=== PATIENT | female | born 1985 | race African-American/Black ===

== ENCOUNTER 2016-11-21 04:59 | Observation (INO) | payer OTHER ==
--- NOTE | 2016-11-21 05:47 | ER Document Report ---
ED GI/ - General Mode of Arrival: Ambulatory Information source: Patient TRAVEL OUTSIDE OF THE [place] IN LAST 30 DAYS: No - HPI Patient complains to provider of: Abdominal pain, , Vaginal discharge Onset: Other - 2 days Timing/Duration: Intermittent, Worse Quality of pain: Cramping Severity at maximum: Moderate Severity in ED: Moderate Pain Level: 4 Location: LLQ, RLQ, Pelvis Menstrual period history: LMP: 07/15/16 : 1 Para: 0 Abortions: 0 OB ultrasound done: Yes Associated symptoms: Vaginal discharge Exacerbated by: Movement Relieved by: Denies Similar symptoms previously: Yes Recently seen / treated by doctor: Yes <ORACIO KOHLER - Last Filed: 11/21/16 07:23> <LORRAINE VÁSQUEZ - Last Filed: 11/21/16 07:41> - General Chief Complaint: Pelvic Pain Stated Complaint: SEVERE CRAMPING Time Seen by Provider: 11/21/16 05:21 Notes: -year-old female presents to ED for abdominal cramping 2 days. She is 19 weeks tomorrow. , States she has had some vaginal discharge off and on for couple weeks. (ORACIO KOHLER) Past Medical History - General Information source: Patient - Social History Smoking Status: Never Smoker Cigarette use (# per day): No Chew tobacco use (# tins/day): No Smoking Education Provided: No Frequency of alcohol use: None Drug Abuse: None Occupation: [employer] Lives with: Friend Family History: Reviewed & Not Pertinent Patient has suicidal ideation: No Patient has homicidal ideation: No - Past Medical History Cardiac Medical History: Reports: None Pulmonary Medical History: Reports: Hx Asthma EENT Medical History: Reports: None Neurological Medical History: Reports: None Endocrine Medical History: Reports: None Renal/ Medical History: Reports: Other - uterine fibroids Malignancy Medical History: Reports: None GI Medical History: Reports: None Musculoskeltal Medical History: Reports None Skin Medical History: Reports None Psychiatric Medical History: Reports: None Traumatic Medical History: Reports: None Infectious Medical History: Reports: None Surgical Hx: Negative Past Surgical History: Reports: None <ORACIO KOHLER - Last Filed: 11/21/16 07:23> Review of Systems - Review of Systems Constitutional: No symptoms reported EENT: No symptoms reported Cardiovascular: No symptoms reported Respiratory: No symptoms reported Gastrointestinal: Abdominal pain - cramping Genitourinary: No symptoms reported Female Genitourinary: , Vaginal discharge Musculoskeletal: No symptoms reported Skin: No symptoms reported Hematologic/Lymphatic: No symptoms reported Neurological/Psychological: No symptoms reported -: Yes All other systems reviewed and negative <ORACIO KOHLER - Last Filed: 11/21/16 07:23> Physical Exam - Vital signs Interpretation: Normal - General General appearance: Appears well, Alert - HEENT Head: Normocephalic, Atraumatic Eyes: Normal Pupils: PERRL - Respiratory Respiratory status: No respiratory distress Chest status: Nontender Breath sounds: Normal Chest palpation: Normal - Cardiovascular Rhythm: Regular Heart sounds: Normal auscultation Murmur: No - Abdominal Inspection: Gravid female Distension: No distension Bowel sounds: Normal Tenderness: Tender - Bilateral lower abdominal pain worse on the right, McBurney 's point, Guarding. No: Rebound Organomegaly: No organomegaly - Back Back: Normal, Nontender - Extremities General upper extremity: Normal inspection, Nontender, Normal color, Normal ROM , Normal temperature General lower extremity: Normal inspection, Nontender, Normal color, Normal ROM , Normal temperature, Normal weight bearing. No: Angela's sign - Neurological Neuro grossly intact: Yes Cognition: Normal Orientation: AAOx4 [place] Coma Scale Eye Opening: Spontaneous [place] Coma Scale Verbal: Oriented [place] Coma Scale Motor: Obeys Commands Radha Coma Scale Total: 15 Speech: Normal Motor strength normal: LUE, RUE, LLE, RLE Sensory: Normal - Psychological Associated symptoms: Normal affect, Normal mood - Skin Skin Temperature: Warm Skin Moisture: Dry Skin Color: Normal <ORACIO KOHLER - Last Filed: 11/21/16 07:23> Course - Laboratory Result Diagrams: 11/21/16 06:30 11/21/16 06:30 - Consults Devan Time consulted: 07:10 <ORACIO KOHLER - Last Filed: 11/21/16 07:23> - Laboratory Result Diagrams: 11/21/16 06:30 11/21/16 06:30 <LORRAINE VÁSQUEZ - Last Filed: 11/21/16 07:41> - Re-evaluation Re-evalutation: 11/21/16 07:23 Next labs and ultrasound with Dr. Vásquez, examined the patient and stated that patient probably needs to be admitted for serial abdominal exams. Consulted Dr. Hartman who is on-call for [employer] she stated that Dr. Palacios is here and that he will come down and see the patient. (ORACIO KOHLER) 11/21/16 07:40 Patient with intermittent crampy right lower quadrant pain, now more persistent. Patient is . On exam there is some pain to the right lower quadrant over McBurney's point. No evidence for inguinal hernia. No gross mass noted. No femoral hernia. Patient has had recent STD testing. Question round ligament pain versus appendicitis. White blood cell count 12.3. OB is consulted for observation. (LORRAINE VÁSQUEZ) - Vital Signs Vital signs: Temp Pulse Resp BP Pulse Ox 98.6 F 102 H 20 147/86 H 100 11/21/16 05:01 11/21/16 05:01 11/21/16 05:01 11/21/16 05:01 11/21/16 05:01 - Laboratory Laboratory results interpreted by me: 11/21/16 11/21/16 11/21/16 06:30 06:30 07:05 WBC 12.3 H Hgb 11.2 L Hct 34.3 L MCV 74 L MCH 23.9 L RDW 16.0 H Absolute Neutrophils 8.9 H Sodium 134.7 L BUN 6 L Urine Ketones 20 H Ur Leukocyte Esterase TRACE H - Consults *Madhu Hartman Reason for consultation: 11/21/16 07:25 19 week female with her first who has lower abdominal pain is worse on the right. She states she also has pelvic cramping. Found shows 19 week 2 day gestation, breech with a heart tone of 149 bpm cervical length 2.[address] Hartman stated that Dr. Palacios was there at that time and that they will be down to see the patient in the emergency room. ( ORACIO KOHLER)
[2016-11-21 06:41] LABS: ABSOLUTE EOSINOPHILS # (AUTO) 0.1 10^3/uL (0.0-0.6); ABSOLUTE LYMPHOCYTES (AUTO) 2.3 10^3/uL (0.5-4.7); ABSOLUTE NEUT (AUTO) 8.9 10^3/uL (1.7-8.2); BASOPHILS % (AUTO) 0.3 % (0-2); EOSINOPHILS % (AUTO) 0.7 % (0-6); HEMATOCRIT 34.3 % (36.0-47.0); HEMOGLOBIN 11.2 g/dL (12.0-15.5); HGB HCT DIFFERENCE -0.7; LYMPHOCYTES % (AUTO) 18.6 % (13-45); MEAN CORPUSCULAR HEMOGLOBIN 23.9 pg (27.0-33.4); MEAN CORPUSCULAR HGB CONC 32.6 g/dL (32.0-36.0); MEAN CORPUSCULAR VOLUME 74 fl (80-97); MONOCYTES % (AUTO) 7.9 % (3-13); RED BLOOD COUNT 4.66 10^6/uL (3.72-5.28); SEGMENTED NEUTROPHILS % (AUTO) 72.5 % (42-78); WHITE BLOOD COUNT 12.3 10^3/uL (4.0-10.5)
--- NOTE | 2016-11-21 06:42 | RADIOLOGY REPORT (SQ) ---
EXAM DESCRIPTION: U/S OB 14+ TA/1 GEST W/DOPPLER COMPLETED DATE/TIME: 11/21/2016 6:30 am REASON FOR STUDY: abdominal cramping 19 weeks COMPARISON: None. TECHNIQUE: Static and Dynamic grayscale imaging performed of gravid uterus using transabdominal appr oac. Additional selected color Doppler and spectral images recorded. All stored on PACS. LIMITATIONS: None. FINDINGS: EGA: 19 weeks and 2 days GOYO: 04/15/2017 EFW: 279 g +/-41 g PERCENTILE: Not applicable. Fetus less than or equal to 20 weeks gestation. WILBUR: 13.9 cm PLACENTA: Fundal. PRESENTATION: Breech. ANATOMY: HEART RATE: 149 beats per minute. FOUR CHAMBER HEART: Visualized. THREE VESSEL CORD: Yes. CORD INSERTION: Visualized. KIDNEYS AND BLADDER: Kidneys appear unremarkable. Urinary bladder is not visualized. STOMACH: Visualized. Appears normal. SPINE: Normal as visualized. BRAIN AND LATERAL VENTRICLES: Visualized. Appear normal. OTHER: No other significant finding. MATERNAL ADNEXA: Maternal ovaries not visualized. CERVICAL LENGTH: 2.6 cm length Closed. OTHER: No other significant finding. IMPRESSION: LIVING INTRAUTERINE . ESTIMATED GESTATIONAL AGE 19 weeks and 2 days NO VISUALIZED ANOMALIES ; limitation: Urinary bladder is not visualized. Trimester of : Second trimester - 13 weeks 1 day to 27 weeks 6 days. TECHNICAL DOCUMENTATION: JOB ID: [id number] [employer]- All Rights Reserved
[2016-11-21 06:53] LABS: ALANINE AMINOTRANSFERASE 28 U/L (9-52); ALBUMIN 3.5 g/dL (3.5-5.0); ALKALINE PHOSPHATASE 66 U/L (38-126); ANION GAP 8 (5-19); ASPARTATE AMINO TRANSFERASE 30 U/L (14-36); BILIRUBIN,DIRECT 0.2 mg/dL (0.0-0.4); BILIRUBIN,TOTAL 0.3 mg/dL (0.2-1.3); BLOOD UREA NITROGEN 6 mg/dL (7-20); CALCIUM 9.5 mg/dL (8.4-10.2); CARBON DIOXIDE 22 mmol/L (22-30); CHLORIDE 105 mmol/L (98-107); CREATININE RESULT 0.64 mg/dL (0.52-1.25); GLUCOSE 76 mg/dL (75-110); POTASSIUM 3.6 mmol/L (3.6-5.0); SODIUM 134.7 mmol/L (137-145)
[2016-11-21 07:27] LABS: APPEARANCE,URINE SLIGHTLY-CLOUDY; BILIRUBIN,URINE NEGATIVE (NEGATIVE); GLUCOSE, URINE NEGATIVE (NEGATIVE); KETONES,URINE 20 mg/dL (NEGATIVE); LEUKOCYTE ESTERASE,URINE TRACE (NEGATIVE); NITRITE,URINE NEGATIVE (NEGATIVE); PROTEIN,URINE NEGATIVE (NEGATIVE); URINE SPECIFIC GRAVITY 1.009; UROBILINOGEN,URINE NEGATIVE mg/dL (<2.0)
[2016-11-21] MEDS ORDERED: DEXAMETHASONE SOD PHOSPHATE INJ 4 MG/1 ML VIAL ONE (07:27)
[2016-11-21] MEDS ORDERED: LIDOCAINE 2% INJ-PF (20 MG/ML) 10 ML AMPUL ONE (07:27)
[2016-11-21] MEDS ORDERED: GLYCOPYRROLATE INJ 0.4 MG/2 ML VIAL ONE (07:27)
[2016-11-21] MEDS ORDERED: PHENYLEPHRINE HCL INJ/PF 10 MG/1 ML SDV ONE (07:27)
[2016-11-21] MEDS ORDERED: NEOSTIGMINE METHYLSULFATE 10 MG/10 ML VIAL ONE (07:27)
[2016-11-21] MEDS ORDERED: SUCCINYLCHOLINE CHLORIDE INJ 200 MG/10 ML VIAL ONE (07:27)
[2016-11-21] MEDS ORDERED: ROCURONIUM BROMIDE INJ 50 MG/5 ML VIAL IV ONE (07:27)
[2016-11-21] MEDS ORDERED: ONDANSETRON HCL INJ/PF 4 MG/2 ML SDV ONE (07:27)
[2016-11-21] MEDS ORDERED: MORPHINE SULFATE 10 MG/ML INJ IV ONE ×3 (07:47→16:00)
[2016-11-21] MEDS ORDERED: ONDANSETRON HCL INJ/PF 4 MG/2 ML SDV IV ONE ×2 (07:47→16:00)
[2016-11-21] MEDS ORDERED: PIPERACILLIN/TAZOBACTAM 3.375 GM VIAL IV ONE (07:48)
[2016-11-21] MEDS ORDERED: NORMAL SALINE 1000 ML 1,000 ML IV ONE (08:04)
[2016-11-21] MEDS ORDERED: NORMAL SALINE 1000 ML 1,000 ML IV PRN (08:04)
--- NOTE | 2016-11-21 08:39 | CONSULTATION REPORT E ---
Consultation Report NAME: JUSTIN BELTRAN : 1985 AGE: 31Y DATE: 11/21/2016 TO: JEFF OLEARY M.D. FROM: WILLIE COLLADO Requesting Physician REPORT OF CONSULTATION: The patient is a 31-year-old -[place] female, resident of [place], employed in [employer], with 19-week intrauterine who presents to the emergency department with acute onset abdominal pain. Patient reports she has had intermittent twinges in her pelvis for the last week and a half, but yesterday pain became more consistent and more localized to the right side. She was brought by [facility] to the Emergency Department early this morning where she was found to have right lower quadrant tenderness, mild leukocytosis. Ultrasound of the pelvis showed breech intrauterine and no other pathologic findings. Patient was examined by a variety of providers in the emergency department, then Surgery was consulted. PAST MEDICAL AND SURGICAL HISTORY: Unremarkable. REVIEW OF SYSTEMS: Unremarkable. ALLERGIES: None known. PHYSICAL EXAMINATION: GENERAL: The patient appears to be in moderate distress. She is sitting upright. VITAL SIGNS: Heart rate approximately 100. GENERAL: She is awake, alert, and oriented and appropriate x4. EYES: Without icterus. OROPHARYNX: Mucous membranes dry. NECK: No adenopathy. LUNGS: Clear to auscultation bilaterally. HEART: Without murmur or gallop. ABDOMEN: Slightly distended consistent with an intrauterine . There is exquisite tenderness in the right lower quadrant with guarding. There is rebound tenderness. EXTREMITIES: The upper and lower extremities are without cyanosis, clubbing or edema. DIAGNOSTICS: Laboratory profile shows a white blood cell count of 12,300. Electrolytes: Sodium 134. Beta HCG is 17,956. Urinalysis shows 20+ ketones. IMPRESSION: 1. Acute onset abdominal pain, now localized to the right lower quadrant, suspicious for appendicitis. 2. Intrauterine , breech position. 3. Moderate dehydration. RECOMMENDATIONS: 1. I have spoken with care providers in the emergency department and Dr. Palacios, [employer], who was production support supervisor today. Dr. Palacios recommended an MR scan of the abdomen and pelvis to further delineate pathoanatomy. 2. Fluid hydration and intravenous antibiotics. 3. I will re-examine the patient, and discuss again with the patient and the patient's mother options including proceeding with the MRI scan versus proceeding directly with laparoscopy, possible appendectomy. DICTATING PHYSICIAN: JEFF OLEARY M.D. [id number] Y#: [id number] ID: [id number] JOB#: [id number] ACCT: [id number] cc:JEFF OLEARY M.D. >
[2016-11-21 08:56] LABS: CHLAM PCR NOT DETECTED (NOT DETECT)
--- NOTE | 2016-11-21 09:49 | RADIOLOGY REPORT (SQ) ---
EXAM DESCRIPTION: MRI ABDOMEN WITHOUT COMPLETED DATE/TIME: 11/21/2016 9:15 am REASON FOR STUDY: rlq abdominal pain 19 weeks preg COMPARISON: Ob ultrasound same date TECHNIQUE: Multiplanar imaging for specific evaluation of the right lower quadrant and pelvis for pa in. Fat sensitive and fluid sensitive sequences. LIMITATIONS: None. FINDINGS: Appendix: Not identified. Right ovary: 2.4 cm right ovarian cysts which is likely a corpus luteum. Small amount of fluid arou nd the right ovary. Uterus: 5.5 cm fibroid in the uterine fundus. Left adnexum: 8 cm left adnexal mass. This is either an abnormal ovary or a large pedunculated fibr oid. A distinct separate left ovary is not identified. Kidneys: Left normal without hydronephrosis. Right renal pelvis measures 3 cm. Right ureter is dil ated at 1 cm. Findings suggest hydronephrosis out of proportion to the degree of gestation. IMPRESSION: Appendix is not identified. Right ovarian cyst with small amount of fluid around the right ovary. Large fundal uterine fibroid. Left adnexum with either an enlarged ovary or a large pedunculated fibroid. Right hydronephrosis which appears to be out of proportion to the degree of gestation. COMMENT: Findings discussed with Dr. Vásquez. Patient to undergo renal and pelvic ultrasound to evaluate the kidneys and ovaries. TECHNICAL DOCUMENTATION: JOB ID: [id number] [employer] All Rights Reserved
--- NOTE | 2016-11-21 10:39 | CONSULTATION REPORT E ---
Consultation Report NAME: JUSTIN BELTRAN : 1985 AGE: 31Y DATE: 11/21/2016 TO: JEFF OLEARY M.D. FROM: WILLIE COLLADO Requesting Physician CHIEF COMPLAINT: Abdominal pain. The patient is seen at the request of the Emergency Department, Anu Patterson, nurse practitioner. SUMMARY OF CONSULTATION: The patient is a 31-year-old female 19 plus week intrauterine , resident of [place]. END OF DICTATION DICTATING PHYSICIAN: JEFF OLEARY M.D. [id number] PHY#: [id number] ID: [id number] JOB#: [id number] ACCT: [id number] cc:JEFF OLEARY M.D. >
--- NOTE | 2016-11-21 12:34 | RADIOLOGY REPORT (SQ) ---
EXAM DESCRIPTION: U/S RETROPERITON LTD COMPLETED DATE/TIME: 11/21/2016 12:17 pm REASON FOR STUDY: R hydro, RLQ pain, COMPARISON: None. TECHNIQUE: Dynamic and static grayscale images acquired of the kidneys and bladder and recorded on P ACS. Additional selected color Doppler and spectral images recorded. LIMITATIONS: None. FINDINGS: RIGHT KIDNEY: Normal size. Normal echogenicity. No solid or suspicious masses. No s tones are identified in the right kidney. The AP diameter of the renal pelvis on the right side is 2 .3 cm which is dilated out of proportion to this patient's gestational status of 19 weeks. LEFT KIDNEY: Normal size. Normal echogenicity. No solid or suspicious masses. No hydronephrosi s. No calcifications. BLADDER: No masses. We were unable to visualize ureteral jets into the bladder OTHER FINDINGS: No other significant finding. IMPRESSION: Right-sided hydronephrosis of No left hydronephrosis TECHNICAL DOCUMENTATION: JOB ID: [id number] [employer]- All Rights Reserved
--- NOTE | 2016-11-21 12:43 | RADIOLOGY REPORT (SQ) ---
EXAM DESCRIPTION: U/S OB LIMITED COMPLETED DATE/TIME: 11/21/2016 12:18 pm REASON FOR STUDY: R pelvic pain, , eval ovaries and fibroids (OB 11/21/16) COMPARISON: Bilateral renal ultrasound, MRI abdomen, OB ultrasound 11/21/2016 TECHNIQUE: Limited transabdominal grayscale ultrasound for evaluation of specific female pelvic orga n parameters. LIMITATIONS: None. FINDINGS: Gravid uterus with multiple fibroids as follows: Left adnexal pedunculated fibroid 7.2 x 6.8 x 6.7 cm correlates with MRI. Two uterine fundal fibroids correlate with MRI, 5.8 x 5.0 cm, and 4.8 x 4.2 cm in size. Right ovary is 3.8 x 3.4 x 3.8 cm in size with a 2.5 x 2 cm simple cyst. Normal color flow. Normal right ovary Doppler waveforms. Left ovary is 3.3 x 2.3 x 1.7 cm in size, normal color flow, normal Doppler. Appendix not identified. No free pelvic fluid. IMPRESSION: No ultrasound evidence of ovarian torsion. 2.5 cm simple cyst right ovary No free pelvic fluid. Appendix not identified Multiple uterine fibroids. TECHNICAL DOCUMENTATION: JOB ID: [id number] [employer]- All Rights Reserved
--- NOTE | 2016-11-21 15:47 | PDOC H&P ---
History of Present Illness Admission Date/PCP: 11/21/16 13:30 Patient complains of: Right Lower Quaderent Pain History of Present Illness: JUSTIN BELTRAN is a 31 year old female G1 who is 19 weeks gestation. Right lower quad pain for the past week, getting worse over the past 2 days +nasea, no emesis, no fevers No vaginal bleeding Past Medical History LMP: 07/15/16 Gynecological Infection: No Cardiac Medical History: Reports: None Pulmonary Medical History: Reports: Asthma EENT Medical History: Reports: None Neurological Medical History: Reports: None Endocrine Medical History: Reports: None Renal/ Medical History: Reports: Other - uterine fibroids Malignancy Medical History: Reports: None GI Medical History: Reports: None Musculoskeltal Medical History: Reports: None Skin Medical History: Reports: None Psychiatric Medical History: Reports: None Traumatic Medical History: Reports: None Infectious Medical History: Reports: None Past Surgical History Past Surgical History: Reports: None Social History Information Source: Patient Lives with: Friend Smoking Status: Never Smoker Frequency of Alcohol Use: None Hx Recreational Drug Use: No Hx Prescription Drug Abuse: No - Advance Directive Resuscitation Status: Full Code Family History Family History: Reviewed & Not Pertinent Parental Family History Reviewed: Yes Children Family History Reviewed: Yes Sibling(s) Family History Reviewed.: Yes Medication/Allergy Home Medications: Pnv No.122/Iron/Folic Acid [ Multi Tablet] 1 each PO DAILY 11/21/16 Allergies/Adverse Reactions: No Known Allergies Allergy (Verified 11/21/16 08:19) Review of Systems All systems: reviewed and no additional remarkable complaints except as stated Constitutional: PRESENT: as per HPI Physical Exam - Physical Exam Vital Signs: Temp Pulse Resp BP Pulse Ox 98.4 F 78 16 114/66 100 11/21/16 14:30 11/21/16 14:30 11/21/16 14:30 11/21/16 14:30 11/21/16 14:30 Intake & Output 11/20/16 11/21/16 11/22/16 06:59 06:59 06:59 Weight 115.9 kg General appearance: PRESENT: no acute distress, cooperative, well-developed Head exam: PRESENT: atraumatic, normocephalic Respiratory exam: PRESENT: clear to auscultation phong Cardiovascular exam: PRESENT: RRR GI/Abdominal exam: PRESENT: guarding, rebound, soft, tenderness - Right lower quadrent Extremities exam: PRESENT: other - negative Homans sign b/l Result Impressions: Abdomen MRI 11/21/16 08:05 IMPRESSION: Appendix is not identified. Right ovarian cyst with small amount of fluid around the right ovary. Large fundal uterine fibroid. Left adnexum with either an enlarged ovary or a large pedunculated fibroid. Right hydronephrosis which appears to be out of proportion to the degree of gestation. Obstetrics Ultrasound 11/21/16 09:43 IMPRESSION: No ultrasound evidence of ovarian torsion. 2.5 cm simple cyst right ovary No free pelvic fluid. Appendix not identified Multiple uterine fibroids. Renal Ultrasound 11/21/16 09:45 IMPRESSION: Right-sided hydronephrosis of No left hydronephrosis Assessment & Plan - Diagnosis (1) Right lower quadrant abdominal pain Is this a current diagnosis for this admission?: Yes (2) 19 weeks gestation of Is this a current diagnosis for this admission?: Yes - Time Time Spent: 30 to 50 Minutes Medications reviewed and adjusted accordingly: Yes Anticipated discharge: Other - Will consult general surgery for the concern of appendicitis
[2016-11-21] MEDS ORDERED: ONDANSETRON HCL INJ/PF 4 MG/2 ML SDV IV PRN (15:58)
[2016-11-21 16:00] LABS: ABSOLUTE BASOPHILS # (AUTO) 0.1 10^3/uL (0.0-0.2); ABSOLUTE EOSINOPHILS # (AUTO) 0.1 10^3/uL (0.0-0.6); ABSOLUTE LYMPHOCYTES (AUTO) 2.8 10^3/uL (0.5-4.7); ABSOLUTE MONOCYTES (AUTO) 1.2 10^3/uL (0.1-1.4); ABSOLUTE NEUT (AUTO) 9.1 10^3/uL (1.7-8.2); BASOPHILS % (AUTO) 0.6 % (0-2); EOSINOPHILS % (AUTO) 0.7 % (0-6); HEMATOCRIT 33.4 % (36.0-47.0); HEMOGLOBIN 10.6 g/dL (12.0-15.5); HGB HCT DIFFERENCE -1.6; LYMPHOCYTES % (AUTO) 21.1 % (13-45); MEAN CORPUSCULAR HEMOGLOBIN 23.8 pg (27.0-33.4); MEAN CORPUSCULAR HGB CONC 31.7 g/dL (32.0-36.0); MEAN CORPUSCULAR VOLUME 75 fl (80-97); MONOCYTES % (AUTO) 9.2 % (3-13); RED BLOOD COUNT 4.44 10^6/uL (3.72-5.28); RED CELL DISTRIBUTION WIDTH 16.1 % (11.5-14.0); SEGMENTED NEUTROPHILS % (AUTO) 68.4 % (42-78); WHITE BLOOD COUNT 13.3 10^3/uL (4.0-10.5)
[2016-11-21] MEDS: RINGERS SOLUTION,LACTATED 1,000 ML IV PRN (17:27)
[2016-11-21] MEDS ORDERED: BUPIVACAINE HCL 0.25 % INJ/PF (2.5 MG/1 ML) 30 ML VIAL ONE (18:02)
[2016-11-21] MEDS ORDERED: FENTANYL CITRATE INJ/PF 250 MCG/5 ML AMPULE ONE (18:04)
[2016-11-21] MEDS ORDERED: MIDAZOLAM 2 MG/2 ML INJ ONE (18:05)
[2016-11-21] MEDS ORDERED: PROPOFOL INJ 200 MG/20 ML VIAL IV ONE (18:05)
[2016-11-21] MEDS ORDERED: EPHEDRINE SULFATE INJ 50 MG/1 ML AMPULE ONE (18:05)
[2016-11-21] MEDS ORDERED: DEXMEDETOMIDINE INJ 80 MCG/20 ML VIAL IV ONE (18:05)
[2016-11-21] MEDS ORDERED: ACETAMINOPHEN 100 ML IV ONE (18:05)
[2016-11-21] MEDS ORDERED: PIPERACILLIN SODIUM/TAZOBACTAM 3.375 GM in NORMAL SALINE 100 ML IV ONE (19:30)
--- NOTE | 2016-11-21 19:59 | Operative Report ---
Operative Report DATE OF SURGERY: 11/21/16 PREOPERATIVE DIAGNOSIS: 1. Persisting right lower quadrant pain. 2. 19 week intrauterine . 3. Large left uterine fibroid. 4. Right ovarian cyst POSTOPERATIVE DIAGNOSIS: Same with. 1. Normal appendix. 2. Partial torsion of right uterine fibroid OPERATION: 1. Diagnostic laparoscopy. 2. Laparoscopic appendectomy. 3. Detorsion of right uterine fibroid SURGEON: JEFF OLEARY ANESTHESIA: GA TISSUE REMOVED OR ALTERED: 1 appendix COMPLICATIONS: None ESTIMATED BLOOD LOSS: None INTRAOPERATIVE FINDINGS: See below PROCEDURE: Indications: The patient is 31-year-old Afro-[place]est[place] female, 19 week intrauterine presented to the emergency department complaining of acute onset abdominal pain worsening in the right lower quadrant. She had a leukocytosis, mild. Imaging studies including right lower quadrant ultrasound, pelvic ultrasound, kidney ultrasound, and MRI of the abdomen and pelvis revealed a 2.5 ovarian cyst, a large left uterine fibroid, fluid in the pelvis, minimal, and no visualization of the appendix. Because of persisting pain, and mild leukocytosis, and localized tenderness of the right lower quadrant, in consultation with Dr. Palacios, I recommended that the patient undergo diagnostic laparoscopy, probable appendectomy. This was discussed with the patient and her mother in detail, with a thorough explanation of the mechanics of the operation, the possible need to convert to an open procedure, and the risks including bleeding, infection, loss of life, loss of fetus due to premature labor or miscarriage. Patient expressed understanding and agreed to proceed. The patient was taken to the operating room where general anesthesia was induced. Her catheter was inserted with the drainage of clear yellow urine. Abdomen was prepped and draped in sterile fashion with the arms abducted. Instrumentation set up and laparoscopic surgery. Surgical plan surgical timeout conducted. After induction of general anesthesia, the abdomen was quite soft, we could palpate the tip of the uterine fundus at about the umbilicus or slightly below. Therefore a supraumbilical approach was undertaken. The skin was anesthetized with quarter percent Marcaine, a supraumbilical vertical incision made with a knife, and open entry was made with knife and hemostats into the peritoneal cavity. A 5 mm cannula without the blade was inserted the peritoneal cavity pneumoperitoneum established. Under direct visualization a right upper quadrant 5 mm port was inserted. Visual inspection of peritoneal cavity revealed no visceral injury and no evidence of bleeding. The uterus was enlarged consistent with the intrauterine . There is a very large left uterine fibroid approximately one third the size of the uterus and photos were taken. On the right side of the patient's pelvis there was a large ovarian cyst approximately 2-1/2 cm to 3 cm. Anterior to this coming off of the lateral aspect of the right side of the uterus was a moderate size fibroid which was purpleish and appeared congested. We actually at this point placed a third trocar in the suprapubic region, 5 mm, after switching out the supraumbilical 5 mm to a 12 mm. Using a grasper, manipulated the uterine fibroid and serendipitously detorsed it in a counterclockwise fashion approximately 90 to [address]. At this point Dr. Palacios, [employer]OL [employer] EQUIPMENT RENTAL CLERK, entered the room per our request and visualize the gynecologic organ findings. He recommended that the uterine fibroid, now detorsed, be left alone in the pelvis because of the risk of bleeding associated with its removal. Prior to our investigation into the right uterine fibroid, we did identify the appendix and it was photographed and appeared to be normal. There was no cloudy fluid in the pelvis. Nonetheless we proceeded with appendectomy by taking down the mesoappendix with the LigaSure clamp and then amputating the appendix at its base with a single firing of the blue load Endo GUSTABO stapler. The appendix was removed from the patient through the 12 mm port. At this point felt the operation was complete. Again Dr. Palacios did not believe extirpation of the right uterine fibroid was indicated. The supraumbilical port site incision was closed with the disposable suture passer and 0 Vicryl suture. All ports removed under direct visualization sponge and counts are correct pneumoperitoneum evacuated and the process. Wound is anesthetized with quarter percent Marcaine again and closed with 3-0 Vicryl, benzoin Steri-Strips. Patient tolerated the procedure well, extubated and taken to recovery room in stable condition.
[2016-11-21] MEDS ORDERED: MEPERIDINE HCL/PF INJ 25 MG/1 ML DISP.SYRIN IV PRN (20:15)
[2016-11-21] MEDS ORDERED: PROMETHAZINE HCL INJ 25 MG/1 ML VIAL IV PRN (20:15)
[2016-11-21] MEDS ORDERED: FENTANYL CITRATE INJ/PF 100 MCG/2 ML AMPUL IV PRN ×3 (20:15)
[2016-11-21] MEDS ORDERED: DIPHENHYDRAMINE HCL 50 MG/ML VIAL IV PRN (20:15)
[2016-11-22] MEDS: MORPHINE SULFATE 10 MG/ML INJ IV PRN ×3 (01:44→16:36)
[2016-11-22] MEDS ORDERED: PIPERACILLIN/TAZOBACTAM 3.375 GM VIAL IV ONE (01:46)
--- NOTE | 2016-11-22 11:08 | PDOC PROGRESS REPORT ---
Subjective Progress Note for:: 11/22/16 Subjective:: Pt notes still with rlq pain that comes and goes. No nausea. No flatus yet. Denies bleeding, ctxs. Physical Exam - Physical Exam Vital Signs: Temp Pulse Resp BP Pulse Ox 98.2 F 71 16 126/73 H 100 11/22/16 07:38 11/22/16 07:38 11/22/16 07:38 11/22/16 07:38 11/22/16 07:38 Intake & Output 11/21/16 11/22/16 11/23/16 06:59 06:59 06:59 Intake Total 1150 Output Total 451 Balance 699 Weight 115.9 kg General appearance: PRESENT: no acute distress - abdomen soft, normal post op tendernes, drsings clean and dry FHTs 150s Extremities exam: PRESENT: full ROM. ABSENT: calf tenderness, clubbing, pedal edema Result Laboratory Results: 11/21/16 15:47 11/21/16 11/21/16 15:47 18:55 WBC 13.3 H RBC 4.44 Hgb 10.6 L Hct 33.4 L MCV 75 L MCH 23.8 L MCHC 31.7 L RDW 16.1 H Plt Count 215 Seg Neutrophils % 68.4 Lymphocytes % 21.1 Monocytes % 9.2 Eosinophils % 0.7 Basophils % 0.6 Absolute Neutrophils 9.1 H Absolute Lymphocytes 2.8 Absolute Monocytes 1.2 Absolute Eosinophils 0.1 Absolute Basophils 0.1 Blood Type B POSITIVE Antibody Screen NEGATIVE Impressions: Abdomen MRI 11/21/16 08:05 IMPRESSION: Appendix is not identified. Right ovarian cyst with small amount of fluid around the right ovary. Large fundal uterine fibroid. Left adnexum with either an enlarged ovary or a large pedunculated fibroid. Right hydronephrosis which appears to be out of proportion to the degree of gestation. Obstetrics Ultrasound 11/21/16 09:43 IMPRESSION: No ultrasound evidence of ovarian torsion. 2.5 cm simple cyst right ovary No free pelvic fluid. Appendix not identified Multiple uterine fibroids. Renal Ultrasound 11/21/16 09:45 IMPRESSION: Right-sided hydronephrosis of No left hydronephrosis Assessment & Plan - Diagnosis (2) 19 weeks gestation of Is this a current diagnosis for this admission?: Yes (3) Right lower quadrant abdominal pain Is this a current diagnosis for this admission?: Yes - Plan Summary Plan Summary: add motrin 800 mg po tid x3 days for pain of possibly degenerating fibroid, advance diet as per general surgery
[2016-11-22] MEDS: IBUPROFEN 800 MG TABLET PO SCH ×2 (13:17→17:18)
--- NOTE | 2016-11-22 15:37 | PDOC PROGRESS REPORT ---
Subjective Progress Note for:: 11/22/16 Subjective:: . Patient complains of incisional pain only Physical Exam Vital Signs: Temp Pulse Resp BP Pulse Ox 98.3 F 86 12 117/62 100 11/22/16 11:23 11/22/16 11:23 11/22/16 11:23 11/22/16 11:23 11/22/16 11:23 Intake & Output 11/21/16 11/22/16 11/23/16 06:59 06:59 06:59 Intake Total 1150 Output Total 451 Balance 699 Weight 115.9 kg General appearance: PRESENT: no acute distress Head exam: PRESENT: atraumatic, normocephalic Mouth exam: PRESENT: moist, neck supple Respiratory exam: PRESENT: clear to auscultation phong, unlabored Cardiovascular exam: PRESENT: RRR GI/Abdominal exam: PRESENT: tenderness - Mild incisional tenderness Results Laboratory Results: 11/21/16 15:47 11/21/16 11/21/16 15:47 18:55 WBC 13.3 H RBC 4.44 Hgb 10.6 L Hct 33.4 L MCV 75 L MCH 23.8 L MCHC 31.7 L RDW 16.1 H Plt Count 215 Seg Neutrophils % 68.4 Lymphocytes % 21.1 Monocytes % 9.2 Eosinophils % 0.7 Basophils % 0.6 Absolute Neutrophils 9.1 H Absolute Lymphocytes 2.8 Absolute Monocytes 1.2 Absolute Eosinophils 0.1 Absolute Basophils 0.1 Blood Type B POSITIVE Antibody Screen NEGATIVE Impressions: Abdomen MRI 11/21/16 08:05 IMPRESSION: Appendix is not identified. Right ovarian cyst with small amount of fluid around the right ovary. Large fundal uterine fibroid. Left adnexum with either an enlarged ovary or a large pedunculated fibroid. Right hydronephrosis which appears to be out of proportion to the degree of gestation. Obstetrics Ultrasound 11/21/16 09:43 IMPRESSION: No ultrasound evidence of ovarian torsion. 2.5 cm simple cyst right ovary No free pelvic fluid. Appendix not identified Multiple uterine fibroids. Renal Ultrasound 11/21/16 09:45 IMPRESSION: Right-sided hydronephrosis of No left hydronephrosis Assessment & Plan - Diagnosis (2) Right lower quadrant abdominal pain Is this a current diagnosis for this admission?: YesPlan: Start clear liquids, and then advance to regular diet. Discharge planning for the a.m. will be initiated.
[2016-11-23] MEDS: MORPHINE SULFATE 10 MG/ML INJ IV PRN (00:22)
[2016-11-23] MEDS: IBUPROFEN 800 MG TABLET PO SCH ×3 (09:07→17:40)
--- NOTE | 2016-11-23 09:34 | PDOC PROGRESS REPORT ---
Subjective Progress Note for:: 11/23/16 Subjective:: admitted for RLQ pain and underwent L/S appy, currently approx 19wks Physical Exam - Physical Exam Vital Signs: Temp Pulse Resp BP Pulse Ox 98.7 F 85 20 124/66 100 11/23/16 07:37 11/23/16 07:37 11/23/16 07:37 11/23/16 07:37 11/23/16 07:37 Intake & Output 11/22/16 11/23/16 11/24/16 06:59 06:59 06:59 Intake Total 1150 Output Total 451 Balance 699 Weight 115.9 kg General appearance: PRESENT: no acute distress, well-developed, well-nourished Head exam: PRESENT: atraumatic, normocephalic Respiratory exam: PRESENT: clear to auscultation phong, symmetrical, unlabored Cardiovascular exam: PRESENT: RRR. ABSENT: diastolic murmur, rubs, systolic murmur Pulses: PRESENT: normal dorsalis pedis pul, +2 pedal pulses bilateral Vascular exam: PRESENT: normal capillary refill GI/Abdominal exam: PRESENT: guarding, normal bowel sounds, soft, tenderness - approp for post op surgery. Pt reports pain at incision site Rectal exam: PRESENT: deferred Extremities exam: PRESENT: full ROM. ABSENT: calf tenderness, clubbing, pedal edema Neurological exam: PRESENT: alert, awake, oriented to person, oriented to place , oriented to time, oriented to situation, CN II-XII grossly intact. ABSENT: motor sensory deficit Psychiatric exam: PRESENT: appropriate affect, normal mood. ABSENT: homicidal ideation, suicidal ideation Skin exam: PRESENT: dry, intact, warm. ABSENT: cyanosis, rash Result Laboratory Results: 11/21/16 15:47 Impressions: Abdomen MRI 11/21/16 08:05 IMPRESSION: Appendix is not identified. Right ovarian cyst with small amount of fluid around the right ovary. Large fundal uterine fibroid. Left adnexum with either an enlarged ovary or a large pedunculated fibroid. Right hydronephrosis which appears to be out of proportion to the degree of gestation. Obstetrics Ultrasound 11/21/16 09:43 IMPRESSION: No ultrasound evidence of ovarian torsion. 2.5 cm simple cyst right ovary No free pelvic fluid. Appendix not identified Multiple uterine fibroids. Renal Ultrasound 11/21/16 09:45 IMPRESSION: Right-sided hydronephrosis of No left hydronephrosis Status: Imported from PACS Assessment & Plan - Diagnosis (1) 19 weeks gestation of Is this a current diagnosis for this admission?: YesPlan: f/u in office this week (2) Uterine fibroid complicating care, baby not yet delivered Is this a current diagnosis for this admission?: YesPlan: likely degenerating fibroid. Reviewed with pt. REviewed tx options including motrin and indocin/carafate. She would like to try motrin 800mg po TID for now. Motrin safe in until 30-32wks. Rx written for her. 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 Defer to Gen Surg re: discharge - Time Time Spent with patient: 15-24 minutes Critical Time spent with patient: Less than 15 minutes Medications reviewed and adjusted accordingly: Yes Anticipated discharge: Home Within: within 24 hours - Inpatient Certification Based on my medical assessment, after consideration of the patient's comorbidities, presenting symptoms, or acuity I expect that the services needed warrant INPATIENT care.: No I certify that my determination is in accordance with my understanding of Medicare's requirements for reasonable and necessary INPATIENT services [42 CFR 412.3e].: No Post Hospital Care: 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
[2016-11-23] MEDS ORDERED: OXYCODONE-ACETAMINOPHEN 5-325 MG TABLET PO PRN (11:45)
[2016-11-23] MEDS: RINGERS SOLUTION,LACTATED 1,000 ML IV PRN (13:02)
[2016-11-23 17:21] VITALS: BP 114/66
--- NOTE | 2016-11-23 17:38 | PDOC PROGRESS REPORT ---
Subjective Progress Note for:: 11/23/16 Subjective:: Patient is without complaints Physical Exam Vital Signs: Temp Pulse Resp BP Pulse Ox 98.2 F 83 15 114/66 100 11/23/16 17:19 11/23/16 17:19 11/23/16 17:19 11/23/16 17:19 11/23/16 17:19 Intake & Output 11/22/16 11/23/16 11/24/16 06:59 06:59 06:59 Intake Total 1150 Output Total 451 Balance 699 Weight 115.9 kg General appearance: PRESENT: no acute distress Cardiovascular exam: PRESENT: RRR GI/Abdominal exam: PRESENT: normal bowel sounds, soft. ABSENT: guarding, tenderness Results Laboratory Results: 11/21/16 15:47 Impressions: Abdomen MRI 11/21/16 08:05 IMPRESSION: Appendix is not identified. Right ovarian cyst with small amount of fluid around the right ovary. Large fundal uterine fibroid. Left adnexum with either an enlarged ovary or a large pedunculated fibroid. Right hydronephrosis which appears to be out of proportion to the degree of gestation. Obstetrics Ultrasound 11/21/16 09:43 IMPRESSION: No ultrasound evidence of ovarian torsion. 2.5 cm simple cyst right ovary No free pelvic fluid. Appendix not identified Multiple uterine fibroids. Renal Ultrasound 11/21/16 09:45 IMPRESSION: Right-sided hydronephrosis of No left hydronephrosis Assessment & Plan - Diagnosis (1) Uterine fibroid complicating care, baby not yet delivered Is this a current diagnosis for this admission?: Yes (2) Right lower quadrant abdominal pain Is this a current diagnosis for this admission?: Yes - Plan Summary Plan Summary: Patient is clear for discharge from surgical standpoint
--- NOTE | 2016-11-23 17:42 | PDOC DISCHARGE SUMMARY ---
General - Admit/Disc Date/PCP Admission Date/Primary Care Provider: 11/21/16 13:30 Discharge Date: 11/23/16 - Discharge Diagnosis (1) 19 weeks gestation of Is this a current diagnosis for this admission?: YesSummary: f/u in office (2) Uterine fibroid complicating care, baby not yet delivered Is this a current diagnosis for this admission?: YesSummary: Likely degenerating fibroid. Rx motrin. Reviewed poss indocin and carafate. Pt desires to try motrin for pain at this time. F/u in office this week. - Additional Information Resuscitation Status: Full Code Discharge Diet: As Tolerated Discharge Activity: Activity As Tolerated Home Medications: Pnv No.122/Iron/Folic Acid [ Multi Tablet] 1 each PO DAILY 11/21/16 Ibuprofen [Motrin 800 mg Tablet] 800 mg PO TID #0 tablet 11/23/16 Oxycodone HCl/Acetaminophen [Percocet 5-325 mg Tablet] 1 - 2 tab PO ASDIR PRN # 30 tablet 11/23/16 History of Present Illness Patient complains of: RLQ pain History of Present Illness: JUSTIN BELTRAN is a 31 year old female admitted for RLQ pain. Gen surg consulted and underwent L/S Appy. puneet fibroid noted and poss degenerating. Rx given. Pain approp for postop. Hospital Course Hospital Course: JUSTIN BELTRAN is a 31 year old female admitted for RLQ pain. Gen surg consulted and underwent L/S Appy. puneet fibroid noted and poss degenerating. Rx given. Pain approp for postop. 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 ABSENT: diastolic murmur, rubs, systolic murmur Pulses: PRESENT: normal dorsalis pedis pul, +2 pedal pulses bilateral Vascular exam: PRESENT: normal capillary refill GI/Abdominal exam: PRESENT: normal bowel sounds, soft. ABSENT: distended, guarding, mass, organolmegaly, rebound, tenderness Rectal exam: PRESENT: deferred Extremities exam: PRESENT: full ROM. ABSENT: calf tenderness, clubbing, pedal edema Neurological exam: PRESENT: alert, awake, oriented to person, oriented to place , oriented to time, oriented to situation, CN II-XII grossly intact. ABSENT: motor sensory deficit Psychiatric exam: PRESENT: appropriate affect, normal mood. ABSENT: homicidal ideation, suicidal ideation Result Laboratory Results: 11/21/16 15:47 Impressions: Abdomen MRI 11/21/16 08:05 IMPRESSION: Appendix is not identified. Right ovarian cyst with small amount of fluid around the right ovary. Large fundal uterine fibroid. Left adnexum with either an enlarged ovary or a large pedunculated fibroid. Right hydronephrosis which appears to be out of proportion to the degree of gestation. Obstetrics Ultrasound 11/21/16 09:43 IMPRESSION: No ultrasound evidence of ovarian torsion. 2.5 cm simple cyst right ovary No free pelvic fluid. Appendix not identified Multiple uterine fibroids. Renal Ultrasound 11/21/16 09:45 IMPRESSION: Right-sided hydronephrosis of No left hydronephrosis Status: Imported from PACS Plan Discharge Plan: Discharge to home Time Spent: Less than 30 Minutes
== END 2016-11-23 18:00 | disposition home or self-care (01) ==
LOC: ER 04:59 → EH 13:30 → 2S 14:34
PROVIDERS: ADMIT Obstetrics & Gynecology; ATTEND Obstetrics & Gynecology
PROC: 0DTJ4ZZ Resection of Appendix, Percutaneous Endoscopic Approach (ICD-10-PCS; principal; 2016-11-21 18:00)
DX: O34.12 Maternal care for benign tumor of corpus uteri, second trimester (principal); O34.82 Maternal care for other abnormalities of pelvic organs, second trimester; N83.291 Other ovarian cyst, right side; O32.1XX0 Maternal care for breech presentation, not applicable or unspecified; O26.892 Other specified pregnancy related conditions, second trimester; E86.0 Dehydration; O99.612 Diseases of the digestive system complicating pregnancy, second trimester; R10.31 Right lower quadrant pain; Z3A.19 19 weeks gestation of pregnancy
CPT/HCPCS: 96376; 99285; 96361; 96375; 96365; 86900; 86901; 36415; 86850; 84702; 85025; 80053; 81001; 87491; 87591; 88304 ×2; 74181; 76775; 76805; 76815; 93976; 44970; J3490 ×3; J1100; J3010; J2270 ×3; J2370; J0330; J2405; J7030; J7120; J2704; J2543 ×2; J0131; 840; G0378; J2250

== ENCOUNTER 2016-12-11 13:42 | Outpatient (CLI) | payer OTHER ==
[2016-12-11 14:45] LABS: URINE BARBITURATES SCREEN NEGATIVE; URINE METHADONE SCREEN NEGATIVE; URINE OPIATES LOW NEGATIVE; URINE PHENCYCLIDINE SCREEN NEGATIVE
[2016-12-11 15:01] LABS: APPEARANCE,URINE SLIGHTLY-CLOUDY; BILIRUBIN,URINE NEGATIVE (NEGATIVE); GLUCOSE, URINE NEGATIVE (NEGATIVE); KETONES,URINE NEGATIVE (NEGATIVE); LEUKOCYTE ESTERASE,URINE SMALL (NEGATIVE); NITRITE,URINE NEGATIVE (NEGATIVE); PROTEIN,URINE NEGATIVE (NEGATIVE); URINE SPECIFIC GRAVITY 1.006; UROBILINOGEN,URINE NEGATIVE mg/dL (<2.0)
== END 2016-12-11 15:14 | disposition home or self-care (01) ==
LOC: LC 13:42 → EDSTATUS 13:49 → LC 15:21
PROVIDERS: ATTEND Specialist
PROC: 4A1HXCZ Monitoring of Products of Conception, Cardiac Rate, External Approach (ICD-10-PCS; principal; 2016-12-11)
DX: O26.892 Other specified pregnancy related conditions, second trimester (principal); R10.2 Pelvic and perineal pain; Z3A.21 21 weeks gestation of pregnancy
CPT/HCPCS: 80307; 81001

== ENCOUNTER 2017-04-13 08:50 | Outpatient (CLI) | payer OTHER ==
[2017-04-13 09:55] LABS: APPEARANCE,URINE SLIGHTLY-CLOUDY; BILIRUBIN,URINE NEGATIVE (NEGATIVE); GLUCOSE, URINE NEGATIVE (NEGATIVE); KETONES,URINE NEGATIVE (NEGATIVE); LEUKOCYTE ESTERASE,URINE MODERATE (NEGATIVE); NITRITE,URINE NEGATIVE (NEGATIVE); PROTEIN,URINE NEGATIVE (NEGATIVE); URINE SPECIFIC GRAVITY 1.013; UROBILINOGEN,URINE NEGATIVE mg/dL (<2.0)
[2017-04-13 10:27] LABS: URINE BARBITURATES SCREEN NEGATIVE; URINE METHADONE SCREEN NEGATIVE; URINE OPIATES LOW NEGATIVE; URINE PHENCYCLIDINE SCREEN NEGATIVE
--- NOTE | 2017-04-13 11:20 | Non Stress Test Report ---
Non Stress Test Datetime Report Generated by CPN: 04/13/2017 11:20 DEMOGRAPHIC EGA NST: 39.2 INDICATION Indication for Study: Other Indication for Study (NST) Other: labor check VITAL SIGNS Temperature - NST: 97.8 NBPSYS NST: 106 NBPDIA NST: 62 MONITORING Monitor Explained: Monitor Explained; Test Explained; Patient Verbalized Understanding Time on Monitor: 04/13/2017 09:24 Time off Monitor: 04/13/2017 09:44 NST Duration: 20 NST INTERVENTIONS NST Interventions: PO Hydration Physician Notified NST: P. Harrell, CNM BABY A: [id number] BABY A Movement : Present Contraction Frequency : 1.5-3 FHR Baseline : 115 Accelerations : 15X15 Decelerations : None Variability : Moderate 6-25bpm NST Review: Meets Criteria for Reactive NST NST Review and Verified By : Batool Hong C NST Results: Reactive NST REPORT Report Trigger: Send Report
== END 2017-04-13 11:07 | disposition home or self-care (01) ==
LOC: LC 08:50
PROVIDERS: ATTEND Obstetrics & Gynecology
PROC: 4A1HXCZ Monitoring of Products of Conception, Cardiac Rate, External Approach (ICD-10-PCS; principal; 2017-04-13)
DX: Z34.93 Encounter for supervision of normal pregnancy, unspecified, third trimester (principal)
CPT/HCPCS: 59025; 80307; 81005

== ENCOUNTER 2017-04-24 11:24 | Inpatient (IN) | payer OTHER ==
[2017-04-24] MEDS ORDERED: RINGERS SOLUTION,LACTATED 1,000 ML IV PRN (11:32)
[2017-04-24] MEDS ORDERED: DINOPROSTONE 10 MG VAGINAL INSERT.SR PV PRN (11:32)
[2017-04-24] MEDS ORDERED: RINGERS SOLUTION,LACTATED 300 ML IV ONE (11:32)
[2017-04-24] MEDS ORDERED: OXYTOCIN/NORMAL SALINE 20 UNIT/1,000 ML RTUINJ IV PRN ×2 (11:32→17:34)
--- NOTE | 2017-04-24 12:40 | Warning Signs in Babies ---
VOD Warning Signs Datetime Report Generated by [facility]: 04/24/2017 12:39 VOD#608 -Warning Signs in Babies: Viewed with Parent(s)/Family (12/11/2016 13:54:Madelaine Syed RN)
[2017-04-24] MEDS ORDERED: MISOPROSTOL 0.2 MG TABLET ONE (13:01)
[2017-04-24] MEDS ORDERED: OXYTOCIN/NORMAL SALINE 20 UNIT/1,000 ML RTUINJ ONE (13:02)
[2017-04-24] MEDS ORDERED: LIDOCAINE 1% INJ-PF (10 MG/ML) 30 ML SDV ONE (13:02)
[2017-04-24 13:11] LABS: ABSOLUTE LYMPHOCYTES (AUTO) 1.9 10^3/uL (0.5-4.7); ABSOLUTE NEUT (AUTO) 6.9 10^3/uL (1.7-8.2); BASOPHILS % (AUTO) 0.5 % (0-2); EOSINOPHILS % (AUTO) 0.5 % (0-6); HEMATOCRIT 30.2 % (36.0-47.0); HEMOGLOBIN 9.8 g/dL (12.0-15.5); HGB HCT DIFFERENCE -0.8; LYMPHOCYTES % (AUTO) 19.3 % (13-45); MEAN CORPUSCULAR HEMOGLOBIN 22.4 pg (27.0-33.4); MEAN CORPUSCULAR HGB CONC 32.3 g/dL (32.0-36.0); MEAN CORPUSCULAR VOLUME 69 fl (80-97); MONOCYTES % (AUTO) 10.1 % (3-13); RED BLOOD COUNT 4.37 10^6/uL (3.72-5.28); RED CELL DISTRIBUTION WIDTH 15.4 % (11.5-14.0); SEGMENTED NEUTROPHILS % (AUTO) 69.6 % (42-78)
[2017-04-24 13:13] LABS: APPEARANCE,URINE SLIGHTLY-CLOUDY; BILIRUBIN,URINE NEGATIVE (NEGATIVE); GLUCOSE, URINE NEGATIVE (NEGATIVE); KETONES,URINE NEGATIVE (NEGATIVE); LEUKOCYTE ESTERASE,URINE LARGE (NEGATIVE); NITRITE,URINE NEGATIVE (NEGATIVE); PROTEIN,URINE NEGATIVE (NEGATIVE); URINE SPECIFIC GRAVITY 1.015
[2017-04-24 13:34] LABS: URINE BARBITURATES SCREEN NEGATIVE; URINE METHADONE SCREEN NEGATIVE; URINE OPIATES LOW NEGATIVE; URINE PHENCYCLIDINE SCREEN NEGATIVE
[2017-04-24] MEDS ORDERED: BUPIVACAINE HCL 0.25 % INJ/PF (2.5 MG/1 ML) 30 ML VIAL ONE (15:54)
[2017-04-24] MEDS ORDERED: FENTANYL/BUPIVACAINE/NS/PF 200 MCG/100 ML RTUINJ EPI ONE (15:54)
[2017-04-24] MEDS ORDERED: EPHEDRINE SULFATE INJ 50 MG/1 ML AMPULE ONE (15:54)
[2017-04-24] MEDS ORDERED: PROMETHAZINE HCL 25 MG TABLET PO PRN (17:34)
[2017-04-24] MEDS ORDERED: DIBUCAINE 1% OINTMENT 28 GM TP PRN (17:34)
[2017-04-24] MEDS ORDERED: PROMETHAZINE HCL 25 MG SUPP.RECT PR PRN (17:34)
[2017-04-24] MEDS ORDERED: PSEUDOEPHEDRINE HCL 30 MG TABLET PO PRN (17:34)
[2017-04-24] MEDS ORDERED: MEASLES,MUMPS&RUBELLA VACC/PF 0.5 ML VIAL SUBCUT PRN (17:34)
[2017-04-24] MEDS ORDERED: DIPH/PERTUSS(ACELL)/TETANUS VAC/PF 0.5 ML SYR (>=10YO) IM PRN (17:34)
[2017-04-24] MEDS ORDERED: BENZOCAINE/MENTHOL AEROSOL SPRAY 56 ML TOP PRN (17:34)
[2017-04-24] MEDS ORDERED: MAGNESIUM HYDROXIDE SUSP 30 ML UDCUP PO PRN (17:34)
[2017-04-24] MEDS ORDERED: GLYCERIN/WITCH HAZEL LEAF 1 EACH MED..PAD TP PRN (17:34)
[2017-04-24] MEDS ORDERED: NA PHOS,M-B/NA PHOS,DI-BA (ADULT) 133 ML ENEMA PR PRN (17:34)
[2017-04-24] MEDS ORDERED: ACETAMINOPHEN 650 MG SUPP.RECT PR PRN (17:34)
[2017-04-24] MEDS ORDERED: PROMETHAZINE HCL INJ 25 MG/1 ML VIAL IV PRN (17:34)
[2017-04-24] MEDS ORDERED: ZOLPIDEM TARTRATE 5 MG TABLET PO PRN (17:34)
[2017-04-24] MEDS ORDERED: ACETAMINOPHEN WITH CODEINE #3 TABLET PO PRN ×2 (17:34)
[2017-04-24] MEDS ORDERED: DIPHENHYDRAMINE HCL 25 MG CAPSULE PO PRN (17:34)
[2017-04-24] MEDS ORDERED: MISOPROSTOL 0.2 MG TABLET PR ONE (17:35)
[2017-04-24] MEDS ORDERED: IBUPROFEN 800 MG TABLET ONE (18:09)
--- NOTE | 2017-04-24 19:49 | Admission Physical ---
Datetime Report Generated by CPN: 04/24/2017 19:49 CURRENT ADMISSION Chief Complaint: Scheduled Induction of Labor Indication for Induction: Post Dates Indication for Induction: Term, Intrauterine Admit Plan: Admit to Unit; Initiate Labor Induction Protocol ALLERGIES Medication Allergies: No Medication Allergies: peanut (04/13/2017) Medication Allergies: No Known Allergies (11/21/2016) Latex: No Latex Allergies Food Allergies: peanut allergy Environmental Allergies: N/A OBSTETRICAL HISTORY EDC: 04/18/2017 00:00 : 1 Para: 0 Term: 0 : 0 SAB: 0 IAB: 0 Livin Gestational Diabetes: No Rh Sensitization: No Incompetent Cervix: No NATHAN: No Infertility: No ART Treatment: No Uterine Anomaly: No IUGR: No Hx Previous C/S: No Macrosomia: No Hx Loss/Stillborn: No PIH: No Hx : No Placenta Previa/Abruption: No Depression/PP Depression: No PTL/PROM: No Post Hemorrhage: No Current Procedures: Ultrasound; NST Obstetrical History Comments: g1-current , multiple fibroids largest lt lateral 6.6cm SEE RECORDS Alcohol: No Marijuana : No Cocaine: No Other Illicit Drugs: No Cigarettes: Never Smoker. 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 Surgery: No Heart Disease: No Hosp/Surgery: Yes Autoimmune Disorder: No Anesthetic Complications: No Kidney Disease: No Abnormal Pap Smear: No Neuro/Epilepsy: No Psychiatric Disorders: No Other Medical Diseases: No Hepatitis/Liver Disease: No Significant Family History: No Varicosities/Phlebitis: No Trauma/Violence : No Thyroid Dysfunction: No Medical History Comments: appendectomy, asthma, multiple fibroids INFECTIOUS HISTORY Gonorrhea: No Genital Herpes: No Chlamydia: No Tuberculosis: No Syphilis: No Hepatitis: No HIV/AIDS Exposure: No Rash or Viral Illness: No HPV: No PHYSICAL EXAM General: Normal HEENT: Normal Neurologic: Normal Thyroid: Deferred Heart: Normal Lungs: Normal Breast: Deferred Back: Deferred Abdomen: Normal Genitourinary Exam: Normal Extremities: Normal DTRs: Deferred Pelvic Type: Adequate Vital Signs: Reviewed; Within Normal Limits VAGINAL EXAM Dilatation: 4 Effacement: 80 Station: 0 Contraction Comments: irreg MEMBRANES Membranes: Intact FETUS A EGA: 40.6 Monitoring: External US FHR- Baseline: 110 Variability: Moderate 6-25bpm Accelerations: 15X15 Decelerations: None FHR Category: Category I Estimated Weight (gm): 3700 Presentation: Vertex Admit Comment: obese at 40+6 in for IOL. P:admit, start pitocin, anticipate PLANS FOR LABOR AND DELIVERY Labor and Delivery: None Pain Management: Natural Feeding Preference: Breast Benefit of Breast Feed Discussed: Yes Circumcision: Yes INFORMED CONSENT Assignment: Yoko Hartman MD Signature: with User ID: [email or web address] : with User ID: [email or web address]
[2017-04-24] MEDS: IBUPROFEN 800 MG TABLET PO SCH (21:16)
[2017-04-24] MEDS: DOCUSATE SODIUM 100 MG CAPSULE PO SCH (21:16)
[2017-04-24] MEDS: FERROUS SULFATE 325 MG TABLET PO SCH (21:16)
[2017-04-24] MEDS: FAMOTIDINE 20 MG TABLET PO SCH (22:00)
[2017-04-25] MEDS: IBUPROFEN 800 MG TABLET PO SCH ×3 (05:25→22:44)
[2017-04-25 07:39] LABS: HEMOGLOBIN 8.9 g/dL (12.0-15.5); HGB HCT DIFFERENCE -0.3; MEAN CORPUSCULAR HEMOGLOBIN 22.8 pg (27.0-33.4); MEAN CORPUSCULAR HGB CONC 32.9 g/dL (32.0-36.0); MEAN CORPUSCULAR VOLUME 69 fl (80-97); RED CELL DISTRIBUTION WIDTH 15.8 % (11.5-14.0); WHITE BLOOD COUNT 14.8 10^3/uL (4.0-10.5)
--- NOTE | 2017-04-25 09:41 | PDOC PROGRESS REPORT ---
Subjective-OB Subjective: Post Delivery Day: 31 year old. Denies any needs at this time Doing well, sitting up in bed, friend at BS, voiding, desires circ, breast feeding, voiding, ambulating Physical Exam (OB) Vital Signs: Temp Pulse Resp BP Pulse Ox 98.3 F 77 16 118/78 100 04/25/17 08:09 04/25/17 08:09 04/25/17 08:09 04/25/17 08:09 04/25/17 08:09 Intake & Output 04/24/17 04/25/17 04/26/17 06:59 06:59 06:59 Weight 125.85 kg - PIH/Pre-Eclampsia Headache: Absent - Lochia Lochia Amount: Small 10-25 ml Lochia Color: Rubra/Red - Abdomen Description: Tender Hernia Present: No Fundal Description: Firm, Midline Fundal Height: u/u - u/2 Objective-Diagnostic Laboratory: 04/25/17 07:24 04/24/17 04/24/17 04/24/17 11:33 12:56 12:56 WBC 10.0 RBC 4.37 Hgb 9.8 L Hct 30.2 L MCV 69 L MCH 22.4 L MCHC 32.3 RDW 15.4 H Plt Count 229 Seg Neutrophils % 69.6 Lymphocytes % 19.3 Monocytes % 10.1 Eosinophils % 0.5 Basophils % 0.5 Absolute Neutrophils 6.9 Absolute Lymphocytes 1.9 Absolute Monocytes 1.0 Absolute Eosinophils 0.0 Absolute Basophils 0.0 Urine Color YELLOW Urine Appearance SLIGHTLY-CLOUDY Urine pH 6.0 Ur Specific [place] 1.015 Urine Protein NEGATIVE Urine Glucose (UA) NEGATIVE Urine Ketones NEGATIVE Urine Blood NEGATIVE Urine Nitrite NEGATIVE Ur Leukocyte Esterase LARGE H Blood Type B POSITIVE Antibody Screen NEGATIVE 04/25/17 07:24 WBC 14.8 H RBC 3.90 Hgb 8.9 L Hct 27.0 L MCV 69 L MCH 22.8 L MCHC 32.9 RDW 15.8 H Plt Count 216 Seg Neutrophils % Lymphocytes % Monocytes % Eosinophils % Basophils % Absolute Neutrophils Absolute Lymphocytes Absolute Monocytes Absolute Eosinophils Absolute Basophils Urine Color Urine Appearance Urine pH Ur Specific [place] Urine Protein Urine Glucose (UA) Urine Ketones Urine Blood Urine Nitrite Ur Leukocyte Esterase Blood Type Antibody Screen Assessment and Plan(PN) - Assessment and Plan (1) Normal vaginal delivery Is this a current diagnosis for this admission?: Yes (2) Anemia Qualifiers: Anemia type: iron deficiency Is this a current diagnosis for this admission?: Yes (3) Obesity Qualifiers: Obesity type: due to excess calories Is this a current diagnosis for this admission?: Yes (4) Uterine fibroid complicating care, baby not yet delivered Is this a current diagnosis for this admission?: Yes - Time Spent with Patient Time with patient: Less than 15 minutes Medications reviewed and adjusted accordingly: Yes - Disposition Anticipated Discharge: Home Within: within 24 hours
[2017-04-25] MEDS: DOCUSATE SODIUM 100 MG CAPSULE PO SCH ×2 (10:53→18:32)
[2017-04-25] MEDS: PRENATAL VITAMIN W DHA CAPSULE PO SCH (10:54)
[2017-04-25] MEDS: FERROUS SULFATE 325 MG TABLET PO SCH ×2 (10:54→18:32)
[2017-04-25] MEDS: FAMOTIDINE 20 MG TABLET PO SCH ×2 (10:54→22:45)
[2017-04-25] MEDS: SENNOSIDES/DOCUSATE 8.6-50 MG 1 EACH TABLET PO SCH (10:54)
[2017-04-26] MEDS: IBUPROFEN 800 MG TABLET PO SCH (06:06)
[2017-04-26 08:27] VITALS: BP 115/77
[2017-04-26] MEDS: FERROUS SULFATE 325 MG TABLET PO SCH (09:26)
[2017-04-26] MEDS: SENNOSIDES/DOCUSATE 8.6-50 MG 1 EACH TABLET PO SCH (09:26)
[2017-04-26] MEDS: DOCUSATE SODIUM 100 MG CAPSULE PO SCH (09:26)
[2017-04-26] MEDS: PRENATAL VITAMIN W DHA CAPSULE PO SCH (09:26)
--- NOTE | 2017-04-26 11:42 | PDOC DISCHARGE SUMMARY ---
Final Diagnosis Discharge Date: 04/26/17 - Final Diagnosis (1) Anemia complicating , third trimester Is this a current diagnosis for this admission?: Yes (2) Normal vaginal delivery Is this a current diagnosis for this admission?: Yes (3) Obesity Is this a current diagnosis for this admission?: Yes (4) Elective induction of labor planned Is this a current diagnosis for this admission?: Yes Discharge Data - Discharge Medication Home Medications: No122/Iron/Folic Acid [ Multi Tablet] 1 each PO DAILY 12/11/16 Reason(s) for Admission: Induction of Labor Procedures: NST, Ultrasound Intrapartum Procedure(s): Spontaneous Vaginal Delivery Complication(s): Laceration-Perineal Laceration-Degree: 2nd - Diagnosis Test Laboratory: Temp Pulse Resp BP Pulse Ox 98.1 F 74 18 115/77 100 04/26/17 08:00 04/26/17 08:00 04/26/17 08:00 04/26/17 08:00 04/26/17 08:00 04/24/17 04/24/17 04/25/17 11:33 12:56 07:24 RBC 4.37 3.90 Hgb 9.8 L 8.9 L Hct 30.2 L 27.0 L Urine Opiates Screen NEGATIVE - Discharge information/Instructions Discharge Activity: Activity As Tolerated, Balance Activity w/Rest, No Lifting Over 10 Pounds, Pelvic Rest, No tub bath Discharge Diet: Regular Disposition: HOME, SELF-CARE Follow up with: [facility] in: 4, Weeks
--- NOTE | 2017-04-28 13:16 | Delivery Summary ---
Del Sum A-C Datetime Report Generated by CPN: 04/28/2017 13:15 DELIVERY PERSONNEL DELIVERY PERSONNEL: [id number] Delivery Doctor:: Alejandra Kim CNM Labor and Delivery Nurse:: Madelaine Syed RN Nursery Nurse:: Fabiola Chen RN Warehouse Team Leader/ELECTROLOGIST: Ysabel Hawkins, RADIOLOGY TRANSPORTER Additional Personnel: : Belgica TrimbleSADIA [place] II MATERNAL INFORMATION Delivery Anesthesia: Epidural Medications After Delivery: Pitocin Drip 20 Units/1000ml NSS Meds After Delivery Comment: Pitocin 20 units in 1 L NS Estimated Blood Loss (ml): 400 Maternal Complications: None Provider Comments: MAMTA (LEFT NUCHAL HAND) VIABLE MALE WITH SPONTANEOUS CRY. CORD DOUBLE CLAMPED AND CUT AT 90 SECONDS. SPONTANEOUS INTACT PLACENTA WITH 3VC. CYTOTEC 1000MG W[place] GIVEN FOR MODERATE BLEEDING. LACERATION REPAIRED UNDER EPIDURAL ANESTHESIA. MOTHER AND INFANT STABLE IN L_D #7 LABOR SUMMARY EDC: 04/18/2017 00:00 No. Babies in Womb: 1 Attempted: No Labor Anesthesia: Epidural LABOR INFORMATION Reason for Induction: Post Dates Onset of Labor: 04/24/2017 12:58 Complete Dilatation: 04/24/2017 16:15 Oxytocin: Induction Group B Beta Strep: negative Antibiotics # of Doses: n/a Antibiotics Time of Last Dose: n/a Name of Antibiotic Given: n/a Steroids Given: None Reason Steroids Not Administered: Not Applicable MEMBRANES Membranes Rupture Method: Spontaneous Rupture of Membranes: 04/24/2017 16:09 Length of Rupture (hr): 0.62 STAGES OF LABOR Stage 1 hr: 3 Stage 1 min: 17 Stage 2 hr: 0 Stage 2 min: 31 Stage 3 hr: 0 Stage 3 min: 5 Total Time in Labor hr: 3 Total Time in Labor min: 53 VAGINAL DELIVERY Episiotomy: None Laceration #1: Perineal Laceration Extension #1: Second Degree Laceration Repair: Yes Laceration Repair Note: perineal small second degree laceration repaired with running locking stitch 2.0chromic. skin closed with 3.0 chromic CSECTION DELIVERY Primary Indication: N/A Secondary Indication: N/A CSection Incidence: N/A Labor: N/A Elective: N/A CSection Incision: N/A BABY A INFORMATION Infant Delivery Date/Time: 04/24/2017 16:46 Method of Delivery: Vaginal Born in Route : No : N/A Forceps: N/A Vacuum Extraction: N/A Shoulder Dystocia : No PRESENTATION/POSITION BABY A Presentation: Cephalic Cephalic Presentation: Vertex Vertex Position: Left Occipital Anterior Breech Presentation: N/A PLACENTA INFORMATION BABY A Placenta Delivery Time : 04/24/2017 16:51 Placenta Method of Delivery: Spontaneous Placenta Status: Delivered SCORES BABY A Heart Rate 1 min: >100 bpm Resp Effort 1 min: Good Cry Reflex Irritability 1 min: Cough or Sneeze or Pulls Away Muscle Tone 1 min: Active Motion Color 1 min: Body [place], Extremities Blue SCORE 1 MIN: 9 Heart Rate 5 min: >100 bpm Resp Effort 5 min: Good Cry Reflex Irritability 5 min: Cough or Sneeze or Pulls Away Muscle Tone 5 min: Active Motion Color 5 min: Body [place], Extremities Blue SCORE 5 MIN: 9 INFORMATION BABY A Gestational Age at Delivery: 40.6 Gestational Status: Full Term- 39- 40.6 Weeks Outcome : Liveborn Condition : Stable Sex: Male IDENTIFICATION BABY A Infant Verification Date/Time: 04/24/2017 17:15 ID Band Number: [id number] Mother's Name Verified: Yes Infant RN Verifying : Loni Hartman RN, Tommie Narayanan RN WEIGHT/LENGTH BABY A Infant Birthweight (gm): 3460 Infant Weight (lb): 7 Weight (oz): 10 Length (in): 20.00 Length (cm): 50.80 CORD INFORMATION BABY A No. Cord Vessels: 3 Nuchal Cord : N/A Cord Blood Taken: Yes-For Storage (Mom's Blood type +) Suction: Mouth; Nose ASSESSMENT BABY A Complications: None Physical Findings at Delivery: Within Normal Limits; Molding of the Head; [place] Spots Infant Respirations: Appears Normal Skin to Skin: Yes Environmental Manager/ALS Called : No Transferred To: Remains with Mother BABY B INFORMATION : N/A SIGNATURES Assignment: Yoko Hartman MD Signature: with User ID: [email or web address] Signature: with User ID: [email or web address] : with User ID: [email or web address] : with User ID: [email or web address] : I was personally available for consultation and serving as supervising physician for the MLP.
== END 2017-04-26 13:01 | disposition home or self-care (01) | DRG 775 ==
LOC: LR 11:24 → 2S 19:48
PROVIDERS: ADMIT Obstetrics & Gynecology; ATTEND Obstetrics & Gynecology
PROC: 10E0XZZ Delivery of Products of Conception, External Approach (ICD-10-PCS; principal; 2017-04-24)
PROC: 0KQM0ZZ Repair Perineum Muscle, Open Approach (ICD-10-PCS; 2017-04-24)
PROC: 3E033VJ Introduction of Other Hormone into Peripheral Vein, Percutaneous Approach (ICD-10-PCS; 2017-04-24)
PROC: 4A1HXCZ Monitoring of Products of Conception, Cardiac Rate, External Approach (ICD-10-PCS; 2017-04-24)
DX: O48.0 Post-term pregnancy (principal); Z68.41 Body mass index [BMI] 40.0-44.9, adult; O99.02 Anemia complicating childbirth; D64.9 Anemia, unspecified; O99.214 Obesity complicating childbirth; O70.1 Second degree perineal laceration during delivery; E66.09 Other obesity due to excess calories; O34.13 Maternal care for benign tumor of corpus uteri, third trimester; D25.9 Leiomyoma of uterus, unspecified; O99.513 Diseases of the respiratory system complicating pregnancy, third trimester; J45.909 Unspecified asthma, uncomplicated; O69.81X0 Labor and delivery complicated by cord around neck, without compression, not applicable or unspecified; Z28.21 Immunization not carried out because of patient refusal; Z91.010 Allergy to peanuts; Z3A.40 40 weeks gestation of pregnancy; Z37.0 Single live birth
CPT/HCPCS: 36415; 80307; 81005; 85025; 85027; 86592; 86850; 86900; 86901; J2590; J3490